=== PATIENT | female | born 2005 | race Two or more races ===

== ENCOUNTER 2024-04-11 00:17 | Emergency (ER) | payer OTHER ==
[2024-04-11] MEDS: Acetaminophen 325 MG Tab PO ONE (00:40)
== END 2024-04-11 03:45 | disposition home or self-care (01) ==
LOC: JD.ED 00:17
DX: M25.561 Pain in right knee (principal); W01.0XXA Fall on same level from slipping, tripping and stumbling without subsequent striking against object, initial encounter; Y92.008 Other place in unspecified non-institutional (private) residence as the place of occurrence of the external cause
CPT/HCPCS: 73562; 99283; A9270